=== PATIENT | female | born 1970 | race Caucasian/White ===

== ENCOUNTER → 2021-06-12 15:57 | Outpatient (BNVA) | payer MEDICAID, SELFPAY | PROVIDERS: Visit Provider Nurse Practitioner | DX: R42 Dizziness and giddiness (principal) | CPT/HCPCS: 80053; 85025 ==

== ENCOUNTER 2021-06-13 08:10 | Emergency (ER) | payer MEDICAID, SELFPAY ==
--- NOTE | 2021-06-13 08:15 | ECG_ITS ---
[facility] Test Date: 2021-06-13 Pat Name: Jennifer Aquino Department: Room: Gender: Female Private Duty Nurse: : 1970 Requested By: Aba Saez Order Number: [id number] Snell MD: Yuliya Melendez M.D. Measurements Intervals [place] Rate: 80 P: 31 ME: 153 QRS: -12 QRSD: 97 T: 29 QT: 367 QTc: 424 Interpretive Statements SINUS RHYTHM MODERATE VOLTAGE CRITERIA FOR LVH, CONSIDER NORMAL VARIANT [MEETS CRITERIA IN ONE OF: R(aVL), S(V1), R(V5), R(V5/V6)+S(V1)] No previous ECG available for comparison Electronically Signed On 06-13-2021 19:35:09 CDT by Yuliya Melendez M.D. [email or web address]
--- NOTE | 2021-06-13 08:17 | XR_ITS ---
WS: [id number] Portable AP upright chest, 06/13/2021 Clinical Data: chest pain Comparison: None. Findings: No nodules, masses or effusions are seen. The heart is normal. The pulmonary vascularity is not increased. No pneumonia or pneumothorax is seen. Monitor leads are on the chest wall. XR/XR chest 1V portable [id number] Impression: Negative chest.
[2021-06-13 08:20] VITALS: BP 159/100; PULSE 88; RESP 20; TEMP 36.8; O2SAT 100
--- NOTE | 2021-06-13 08:21 | PC.PHAR ---
pt states she takes care of her own medications-pt states she takes no rx medications
--- NOTE | 2021-06-13 08:37 | ED_ITS ---
HPI - Chest Pain General: Chief Complaint: Chest Pain Stated Complaint: chest pain Time Seen by Provider: 06/13/21 08:17 History of Present Illness: HPI narrative: Patient states that she felt bad yesterday but today she woke about 4:00 this morning with tightness in the left side of her chest going down the left arm going through to her back. Said it felt like somebody was squeezing her in her chest. She still has it feeling denies shortness of breath nausea or vomiting. Has no cardiac history except that mom and dad both had heart problems. Recently moved back from [place] where she had had a breast biopsy done and was told that she had breast cancer in her right breast is not sought out treatment for that presently MD complaint: chest pain and chest discomfort Onset (ago): hour(s) Timing of current episode: constant Prior episodes: No Onset: awoke with symptoms Pain location: left chest Pain radiation: left arm and back Severity: moderate Quality: tightness Relieving factors: nothing Exacerbating factors: nothing Context: recent illness Associated symptoms: Reports no associated symptoms; Deny abdominal pain, dyspnea, fever(s), nausea or vomiting Review of Systems Const: Denies: fever(s), chills or body aches Eyes: Denies: change in vision or blurry vision ENMT: Denies: throat pain or nasal congestion Card: Reports: chest pain; Denies: dyspnea on exertion Resp: Denies: dyspnea, productive cough or non-productive cough GI: Denies: abdominal pain, nausea or vomiting Musc: Denies: extremity pain Skin/Breast: Denies: rash Neuro: Denies: headache(s) Psych: Denies: anxiety or depression Ervin/Lymph: Denies: easy bruising PFSH ED PFSH: Social History Smoking and tobacco status: never smoked Physical Exam Const: COMMON NORMALS: no acute distress, average body habitus and patient oriented x3 HENMT: COMMON NORMALS: normocephalic HEAD & SCALP: normal to inspection and normocephalic FACE & SINUS: normal facial exam Eye: COMMON NORMALS: conjunctivae normal GENERAL EYE: appearance normal, both eyes and all related structures CONJUNCTIVA: Yes conjunctivae normal Neck/C-Spine: COMMON NORMALS: no JVD Chest: COMMONS NORMALS: normal inspection of the chest Resp: COMMON NORMALS: normal respiratory effort and clear to auscultation bilaterally AUSCULTATION: clear to auscultation bilaterally Cardio: COMMON NORMALS: no JVD, regular rate and regular rhythm RATE: regular rate RHYTHM: regular rhythm GI: COMMON NORMALS: Normal to inspection, nondistended, normoactive bowel sounds present Extremity: COMMON NORMALS: normal to inspection and full ROM Neuro: COMMON NORMALS: patient oriented x3 Course Vital Signs: Vital signs: Vital Signs Temperature 98.3 F 06/13/21 08:20 Pulse Rate 80 06/13/21 12:05 Respiratory Rate 18 06/13/21 12:05 Blood Pressure 147/86 06/13/21 12:05 Pulse Oximetry 97 06/13/21 12:05 MDM - Chest Pain MDM Narrative: Medical decision making narrative: Labs come back normal tropo vidal was normal EKG looks good. Patient has a breast lump to come back positive for cancer on a biopsy that was done down in [place]. Patient does not follow-up primary care I suggest that she follows up with her primary care here and gave her names some and follow-up with [facility] clinic. She does have atypical chest pain. Can take ibuprofen Tylenol. Discussed case with Dr. Saez Lab Data: Labs: Lab Results 06/13/21 06/13/21 06/13/21 Range/Units 08:30 08:30 08:30 WBC 10.8 H (4.0-10.0) 10^3/ uL RBC 4.84 (4.1-5.3) 10^6/u L Hgb 12.1 (11.5-15.3) g/dL Hct 39.3 (37.0-47.0) % MCV 81.2 (81-99) fl MCH 25.0 L (28.0-34.0) pg MCHC 30.8 (30.0-36.0) g/dL RDW 14.4 (12.1-15.1) % Plt Count 347 (130-400) 10^3/c mm MPV 11.4 H (7.4-10.4) fL Neut % (Auto) 66.3 % Lymph % (Auto) 24.5 % [place] % (Auto) 6.3 % Eos % (Auto) 2.0 % Baso % (Auto) 0.6 % Neut # (Auto) 7.19 (1.8-7.7) 10^3/u L Lymph # (Auto) 2.7 (0.8-4.8) 10^3/u L [place] # (Auto) 0.7 (0.2-0.9) 10^3/u L Eos # (Auto) 0.2 (0.0-0.8) 10^3/u L Baso # (Auto) 0.1 (0.0-0.1) 10^3/u L Nucleated RBC % (a uto) 0 % Nucleated RBCs # 0.0 /100WBC Sodium Cancelled Potassium Cancelled Chloride Cancelled Carbon Dioxide Cancelled Anion Gap Cancelled BUN Cancelled Creatinine Cancelled GFR Calculation Cancelled Glucose Cancelled Calculated Osmolal ity Cancelled Calcium Cancelled Troponin T Baselin e Cancelled Troponin T 120 Min [place] (0-10) ng/L Delta Troponin T (0-10) ABS# 06/13/21 06/13/21 06/13/21 Range/Units 09:21 09:21 11:20 WBC (4.0-10.0) 10^3/ uL RBC (4.1-5.3) 10^6/u L Hgb (11.5-15.3) g/dL Hct (37.0-47.0) % MCV (81-99) fl MCH (28.0-34.0) pg MCHC (30.0-36.0) g/dL RDW (12.1-15.1) % Plt Count (130-400) 10^3/c mm MPV (7.4-10.4) fL Neut % (Auto) % Lymph % (Auto) % [place] % (Auto) % Eos % (Auto) % Baso % (Auto) % Neut # (Auto) (1.8-7.7) 10^3/u L Lymph # (Auto) (0.8-4.8) 10^3/u L [place] # (Auto) (0.2-0.9) 10^3/u L Eos # (Auto) (0.0-0.8) 10^3/u L Baso # (Auto) (0.0-0.1) 10^3/u L Nucleated RBC % (a uto) % Nucleated RBCs # /100WBC Sodium 137 Potassium 4.2 Chloride 102 Carbon Dioxide 23 Anion Gap 16.2 BUN 11 Creatinine 0.7 GFR Calculation 89.3 L Glucose 88 Calculated Osmolal ity 283 L Calcium 9.5 Troponin T Baselin e 8 Troponin T 120 Min [place] 7.31 (0-10) ng/L Delta Troponin T -0.69 L (0-10) ABS# EKG Data^: EKG 1: EKG interpretation date: 06/13/21 EKG interpretation time: 08:27 Computer generated interpretation: Sinus rhythm ventricular rate 80 bpm PA interval 153 ms QRS duration 97 ms QT interval 367 ms EKG 2: EKG interpretation date: 06/13/21 EKG interpretation time: 12:02 Computer generated interpretation: EKG shows sinus rhythm and LVH. Ventricular rate 90 bpm PA interval 140 ms QRS duration 94 ms QT is 387 ms Discharge Plan Discharge Patient Disposition: Home Clinical Impression: Atypical chest pain Condition: Stable Prescriptions: No Action vitamin B complex Tablet 1 tab PO QAM RF: 0 Discharge Orders: Discharge ED (Routine); Ordered 06/13/21 Ordered By: Juan Manuel Bellamy Discharge Diet: Usual diet Discharge Activity: Resume usual activity Patient Instructions: Noncardiac Chest Pain (ED) Activity Restrictions/Additional Instructions: Establish with primary care here locally. [facility] has a family practice clinic here in [facility] [address] and and please give them a call to get established. Follow-up with your oncologist. Can return to ER if worsening symptoms. Do recommend taking ibuprofen as needed for pain also. Coding Level of Care Code ED Big Data Hadoop Developer for Chg Fwd Exam Comprehensive
[2021-06-13 08:39] VITALS: O2SAT 97
[2021-06-13 09:10] VITALS: BP 143/100; PULSE 73; RESP 24; O2SAT 95
[2021-06-13 09:14] LABS: Basophils # 0.1 10^3/uL (0.0-0.1); Basophils % 0.6 %; Eosinophils # 0.2 10^3/uL (0.0-0.8); Hematocrit 39.3 % (37.0-47.0); Hemoglobin 12.1 g/dL (11.5-15.3); Lymphocytes # 2.7 10^3/uL (0.8-4.8); Lymphocytes % 24.5 %; Mean Corpuscular HGB Conc 30.8 g/dL (30.0-36.0); Mean Corpuscular Volume 81.2 fl (81-99); Mean Platelet Volume 11.4 fL (7.4-10.4); Monocytes # 0.7 10^3/uL (0.2-0.9); Monocytes % 6.3 %; Neutrophils # 7.19 10^3/uL (1.8-7.7); Neutrophils % 66.3 %; Nucleated Red Blood Cells % 0 %; Platelet Count 347 10^3/cmm (130-400); Red Blood Count 4.84 10^6/uL (4.1-5.3); Red Cell Distribution Width 14.4 % (12.1-15.1); White Blood Count 10.8 10^3/uL (4.0-10.0)
[2021-06-13 09:54] LABS: Troponin(5th) Baseline 8 ng/L (0-10)
[2021-06-13 09:56] LABS: Anion Gap 16.2 (5-19); Blood Urea Nitrogen 11 mg/dL (6-20); Calcium 9.5 mg/dL (8.5-10.5); Carbon Dioxide 23 mmol/L (22-29); Chloride 102 mmol/L (98-107); Glomerular Filtration Rate 89.3 mL/min (90-130); Glucose 88 mg/dL (65-115); Osmolality Calculated 283 mOsm/kg (285-295); Potassium 4.2 mmol/L (3.5-5.1); Sodium 137 mmol/L (136-145)
[2021-06-13 10:26] VITALS: BP 156/103; PULSE 78; RESP 21; O2SAT 98
--- NOTE | 2021-06-13 10:58 | PC.NURSE ---
Patient resting, sitting up in bed watching TV. States is feeling better. Pt aware of neeed for 2 hour Troponin which will be collected soon. Pt denies needs/concerns at this time.
[2021-06-13 11:01] VITALS: BP 130/74; PULSE 74; RESP 21; O2SAT 97
[2021-06-13 11:49] LABS: Troponin 5 2HR 7.31 ng/L (0-10)
[2021-06-13 11:51] LABS: Troponin 5 2HR Delta -0.69 ABS# (0-10)
[2021-06-13 12:05] VITALS: BP 147/86; PULSE 80; RESP 18; O2SAT 97
== END 2021-06-13 12:05 | disposition home or self-care (01) ==
PROVIDERS: Emergency Medicine; Emergency Provider Nurse Practitioner Family
DX: R07.89 Other chest pain (principal)
CPT/HCPCS: 36415; 71045; 80048; 84484; 85025; 93005; 99284

== ENCOUNTER 2022-01-06 07:05 | Emergency (ER) | payer MEDICAID, SELFPAY ==
[2022-01-06] VITALS (9 sets, daily range): BP systolic 132–180; BP diastolic 92–123; PULSE 95–114; RESP 14–22; TEMP 36.6; O2SAT 94–100; BMI 49.2
--- NOTE | 2022-01-06 07:27 | USR_ITS ---
PROCEDURE INFORMATION: Exam: US Abdomen, Limited; Right Upper Quadrant Exam date and time: 01/06/2022 8:13 AM Age: 51 years old Clinical indication: Abdominal pain; Acute; Additional info: Ruq pain TECHNIQUE: Imaging protocol: US abdomen. Real time ultrasound with image documentation. Limited exam focused on the right upper quadrant. Total images: 58 COMPARISON: No relevant prior studies available. FINDINGS: Liver: 17.4 cm Liver length. Hepatomegaly. Gallbladder: The gallbladder is contracted with stones and positive sonographic Pacheco sign. Gallbladder wall appears thickened measured at 0.9 cm but no pericholecystic fluid. Findings concerning for acute calculus cholecystitis. Common bile duct: Common bile duct diameter is 7 mm. Pancreas: The pancreas is partially visualized due to overlying bowel gas. No gross pathology is detected. Right kidney: Right kidney with normal echogenicity and no hydronephrosis, calculi, solid masses, nor perinephric fluid collection. 9.7 cm length of right kidney. Portal venous: Spectral sonography demonstrates patent portal vein with hepatopedal blood flow. Normal respiratory phasicity on spectral waveform, indicating preserved compliance of the liver. No portal venous abnormality identified. Other findings: Quality of examination is limited by body habitus. US/US gall bladder [id number] IMPRESSION: 1. Hepatic steatosis noted with hepatomegaly. 2. The gallbladder is contracted with stones and positive sonographic Pacheco sign. Gallbladder wall appears thickened measured at 0.9 cm but no pericholecystic fluid. Findings concerning for acute calculus cholecystitis.
--- NOTE | 2022-01-06 07:28 | W.ED.ABDPA2 ---
HPI - Abdominal Pain General: Chief Complaint: Abdominal Pain Stated Complaint: Rt side abd pain and back area Time Seen by Provider: 01/06/22 07:09 Source: patient Mode of arrival: ambulatory Limitations: no limitations History of Present Illness: Patient is a 51-year-old female here for concerns of right upper quadrant pain over the past 1.5 weeks. Patient states she felt like pain was initially related to possible constipation so treated with OTC medication and felt like she was having normal bowel movements yet her pain persisted. She states over the past 48 hours pain has progressively worsened and become more constant in nature. She feels like pain is radiating around into her back. She is not sure if symptoms are affected by eating states possibly if I eat something spicy . She does feel like maybe she's been burping and passing more flatulance than normal. Patient is actively undergoing chemotherapy for breast cancer so she states she chronically has nausea but she has not had any episodes of emesis. She is not having any urinary symptoms. No fevers. 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 MD elicited complaint: abdominal pain Pertinent past history: none Onset (ago): day(s) Pain Consistency: constant Location: RUQ Severity: severe Quality: sharp and burning Radiation: back Relieving factors: nothing Associated Symptoms: Reports nausea; Denies change in bowel habits, change in stool character, chills, diarrhea, dysuria, fever(s), heartburn, hematochezia, hematuria, hematemesis, melena, syncope and vomiting Review of Systems Const: Denies: fever(s), chills or body aches Card: Denies: chest pain, palpitations, syncope or pre-syncope Resp: Denies: dyspnea, productive cough, non-productive cough, hemoptysis or chest congestion GI: Reports: abdominal pain and nausea; Denies: vomiting, hematemesis, heartburn, diarrhea, change in bowel habits, change in stool character, hematochezia or melena : Denies: flank pain, dysuria or hematuria Musc: Reports: back pain; Denies: neck pain, extremity pain or joint pain Neuro: Denies: headache(s), numbness in extremities, weakness in extremities or sensory changes PFSH ED PFSH: Social History Smoking and tobacco status: never smoked Physical Exam Const: COMMON NORMALS: no acute distress, patient oriented x3, no limitations and alert NUTRITIONAL APPEARANCE: obese ORIENTATION/CONSCIOUSNESS: Yes awake, Yes oriented to person, Yes oriented to place and Yes oriented to time HENMT: COMMON NORMALS: normocephalic and atraumatic HEAD & SCALP: normocephalic and atraumatic Chest: COMMONS NORMALS: normal inspection of the chest and normal palpation of entire chest wall Resp: COMMON NORMALS: normal respiratory effort and clear to auscultation bilaterally AUSCULTATION: clear to auscultation bilaterally Cardio: COMMON NORMALS: regular rhythm RATE: tachycardic RHYTHM: regular rhythm GI: COMMON NORMALS: Soft to palpation and no masses INSPECTION: Yes other (rash present to anterior R abdomen ) AUSCULTATION: Yes normoactive bowel sounds PALPATION: Yes Soft to palpation and Yes Tenderness to palpation present (GI) (RUQ) GI image (female): 1. erythematous cluster of vesicular rash that I highly suspect is herpes zoster : COMMON NORMALS: Yes no CVA tenderness BLADDER/KIDNEY EXAM: Yes no CVA tenderness Back/Pelvis: COMMON NORMALS: no CVA tenderness, thoracic and lumbar spine normal to inspection, no thoracic nor lumbar tenderness and thoraco-lumbar ROM normal Extremity: COMMON NORMALS: normal to inspection GENERAL: Yes normal exam except as noted Neuro: ASIF COMA SCALE: document GCS findings Asif coma scale eye opening: Spontaneous Asif coma scale verbal response: Orientated Asif coma scale motor response: Obey commands Asif coma scale total score: 15 COMMON NORMALS: patient oriented x3, moves all extremities, no focal motor deficits, no sensory deficits noted and gait normal SENSORIUM/ORIENTATION: Yes alert, Yes oriented to person, Yes oriented to place and Yes oriented to time Skin: RASHES: rashes noted (see abdominal assessment) Course ED course: Based on history alone patient's symptoms sounded very suspicious for gallbladder pathology/biliary colic however after physical exam and discovery of zoster appearing rash I think this probably is more likely. She is actively undergoing chemotherapy which would make her at an increased risk for this. She certainly has risk factors (female, 40s, overweight) for gallbladder disease so I think obtaining labs/US would be reasonable as well. Consultations: Consultation #1: Dr. Cheatham-reviewed US/CT findings and did not feel this represented an acute cholecystitis; graciously agreed to see patient in office for follow-up Vital Signs: Vital signs: Vital Signs Temperature 97.9 F 01/06/22 07:16 Pulse Rate 98 01/06/22 11:55 Respiratory Rate 20 H 01/06/22 11:55 Blood Pressure 132/92 01/06/22 11:55 Pulse Oximetry 100 01/06/22 11:55 MDM - Abdominal Pain Medical Decision Making Patient is a 51-year-old female here for complaints of right upper abdominal pains with radiation into her back. On physical exam patient is starting to develop an erythematous vesicular cluster rash to her right upper anterior abdomen that I strongly feel most likely is herpes zoster. Given other symptoms no risk factors lab work and ultrasound gallbladder were obtained. On her US the gallbladder is contracted with stones and appears to have a thickened wall at 0.9 cm. There is no pericholecystic fluid. Radiologist commented that findings could be concerning for acute calculus cholecystitis. Patient has completely normal LFTs. Her UA showed 3+ blood without infection so CT imaging was obtained to further evaluate for hematuria as well as further biliary visualization. CT imaging was essentially normal apart from an incidental right adrenal mass that patient states she was already aware of and has already had biopsied. I did run ultrasound results by Dr. Cheatham who reviewed ultrasound and CT scan and stated the gallbladder wall cannot be accurately measured when the gallbladder is contracted. He felt US/CT imaging coupled with normal labs and normal vitals did not represent an acute cholecystitis but graciously agreed to see patient in his office for follow-up. At this time I will place referral to have patient follow-up with Dr. Cheatham. She will be started on pain meds and antivirals for the shingles. Patient states she will follow up with PCP in regards to the hematuria. Strict return to ED precautions given she verbalized understanding. He did speak about possibly placing patient on steroids for the shingles however she tells me she takes a 5-day course of dexamethasone with her chemotherapy treatments and states she is scheduled to start this January 15 so I do not want to place patient on a steroid taper which would end right around the same time that she is scheduled to start the dexamethasone. Lab Data : 01/06/22 09:10 01/06/22 09:10 Labs/Radiology: Radiology Impressions Gallbladder Ultrasound 01/06/22 07:27 IMPRESSION: 1. Hepatic steatosis noted with hepatomegaly. 2. The gallbladder is contracted with stones and positive sonographic Pacheco sign. Gallbladder wall appears thickened measured at 0.9 cm but no pericholecystic fluid. Findings concerning for acute calculus cholecystitis. Abdomen/Pelvis CT 01/06/22 10:13 IMPRESSION: 1. 18 mm indeterminate mass of the right adrenal gland. Nonemergent unenhanced CT or MR abdomen could further evaluate. 2. No renal, ureteral, nor bladder calculi detected. 3. No acute process identified. Laboratory Results WBC 16.6 10^3/uL (4.0-10.0) H 01/06/22 09:10 RBC 4.21 10^6/uL (4.1-5.3) 01/06/22 09:10 Hgb 13.1 g/dL (11.5-15.3) 01/06/22 09:10 Hct 41.0 % (37.0-47.0) 01/06/22 09:10 MCV 97.4 fl (81-99) 01/06/22 09:10 MCH 31.1 pg (28.0-34.0) 01/06/22 09:10 MCHC 32.0 g/dL (30.0-36.0) 01/06/22 09:10 RDW 14.1 % (12.1-15.1) 01/06/22 09:10 Plt Count 198 10^3/cmm (130-400) 01/06/22 09:10 MPV 10.4 fL (7.4-10.4) 01/06/22 09:10 Neut % (Auto) 74.1 % 01/06/22 09:10 Lymph % (Auto) 18.6 % 01/06/22 09:10 [place] % (Auto) 6.6 % 01/06/22 09:10 Eos % (Auto) 0.2 % 01/06/22 09:10 Baso % (Auto) 0.5 % 01/06/22 09:10 Neut # (Auto) 10.05 10^3/uL (1.8-7.7) H 01/06/22 09:10 Lymph # (Auto) 3.1 10^3/uL (0.8-4.8) 01/06/22 09:10 [place] # (Auto) 1.1 10^3/uL (0.2-0.9) H 01/06/22 09:10 Eos # (Auto) 0.0 10^3/uL (0.0-0.8) 01/06/22 09:10 Baso # (Auto) 0.1 10^3/uL (0.0-0.1) 01/06/22 09:10 Nucleated RBC % (auto) 1.0 % 01/06/22 09:10 Nucleated RBCs # 0.2 /100WBC 01/06/22 09:10 Sodium 137 mmol/L (136-145) 01/06/22 09:10 Potassium 4.1 mmol/L (3.5-5.1) 01/06/22 09:10 Chloride 101 mmol/L (98-107) 01/06/22 09:10 Carbon Dioxide 23 mmol/L (22-29) 01/06/22 09:10 Anion Gap 17.1 (5-19) 01/06/22 09:10 BUN 9 mg/dL (6-20) 01/06/22 09:10 Creatinine 0.9 mg/dL (0.5-0.9) 01/06/22 09:10 GFR Calculation 66.5 mL/min (90-130) L 01/06/22 09:10 Glucose 129 mg/dL (65-115) H 01/06/22 09:10 Calculated Osmolality 284 mOsm/kg (285-295) L 01/06/22 09:10 Calcium 9.8 mg/dL (8.5-10.5) 01/06/22 09:10 Total Bilirubin 0.2 mg/dL (0.15-1.2) 01/06/22 09:10 AST 20 U/L (0-32) 01/06/22 09:10 ALT 20 U/L (0-33) 01/06/22 09:10 Alkaline Phosphatase 109 IU/L (35-105) H 01/06/22 09:10 Total Protein 7.4 g/dL (6.6-8.7) 01/06/22 09:10 Albumin 4.5 g/dL (3.5-5.2) 01/06/22 09:10 Globulin 2.9 g/dL (1.3-4.6) 01/06/22 09:10 Lipase 20 U/L (13-60) 01/06/22 09:10 Urine Color Yellow (Yellow) 01/06/22 09:07 Urine Appearance Clear (CLEAR) 01/06/22 09:07 Urine pH 5 (5-7) 01/06/22 09:07 Ur Specific [place] 1.025 (1.005-1.030) 01/06/22 09:07 Urine Protein Neg (Negative) 01/06/22 09:07 Urine Glucose (UA) Norm (Normal) 01/06/22 09:07 Urine Ketones Negative (Negative) 01/06/22 09:07 Urine Blood 3+ (Negative) H 01/06/22 09:07 Urine Nitrate Negative (Negative) 01/06/22 09:07 Urine Bilirubin Neg (Negative) 01/06/22 09:07 Urine Urobilinogen Norm mg/dL (Negative) 01/06/22 09:07 Ur Leukocyte Esterase Negative (Negative) 01/06/22 09:07 Urine RBC 0-4 /hpf (0-2) H 01/06/22 09:07 Urine WBC None /hpf (0-5) 01/06/22 09:07 Ur Squamous Epith Cells Rare /hpf (0-5) 01/06/22 09:07 Amorphous Sediment Not Reportable 01/06/22 09:07 Urine Bacteria None /hpf (NONE) 01/06/22 09:07 Urine Mucus Trace /hpf 01/06/22 09:07 Discharge Plan Discharge Patient Disposition: Home Clinical Impression: Herpes zoster Qualifiers: Herpes zoster complications: without complications Qualified Code(s): B02.9 - Zoster without complications Condition: Stable Prescriptions: New hydrocodone-acetaminophen 5-325 mg tablet 1 tab PO Q4H PRN (Reason: pain) Qty: 20 0RF Valtrex 1 gram tablet 1,000 mg PO TID 7 Days Qty: 21 0RF No Action vitamin B complex Tablet 1 tab PO QAM 0RF Discharge Orders: Discharge ED (Routine); Ordered 01/06/22 Ordered By: Loretta Lind Referrals: Lucio Cheatham MD [Physician] - Activity Restrictions/Additional Instructions: As we discussed please let your oncologist know early this week of the shingles diagnosis and antiviral started to see if this will alter your upcoming chemotherapy treatment. Case management should contact you shortly to set you up with your follow-up appointment with Dr. Cheatham in regards to your abnormal gallbladder ultrasound. You need to return to the emergency department for worsening or uncontrollable abdominal pains, repetitive episodes of vomiting or diarrhea, fevers greater than 100.4, or any other concerns you may have. I hope you begin to feel better soon. Coding Level of Care Code ED Retail Bakery Manager for Chg Fwd Exam Comprehensive
[2022-01-06] MEDS: morphine 4 mg/mL SDV 1 mL IVP (07:55)
[2022-01-06] MEDS: ondansetron 2 mg/ML SDV 2 mL 4 MG IVP (07:55)
--- NOTE | 2022-01-06 08:06 | PC.NURSE ---
Patient IV placed, unable to get blood specimen, called lab to draw. Patient tolerated IV morphine. Warm blanket provided, call light within reach, railing up. Family at bedside.
--- NOTE | 2022-01-06 08:07 | PC.NURSE ---
Patient reports upper right sided abdominal pain that started 1 week ago. Patient states nothing make the pain worse or better, and the pain comes and goes.Patient states she is currently having chemo, next chemo is next week. Patient denies any needs at this time.
--- NOTE | 2022-01-06 09:04 | PC.NURSE ---
Patient ambulated to the bathroom with steady gait, RN and student Nurse were on standby while walking. Patient reports no pain.
--- NOTE | 2022-01-06 09:10 | PC.NURSE ---
Urine walked to lab.
--- NOTE | 2022-01-06 09:29 | PC.NURSE ---
Patient instructed to not eat or drink anything, nothing by mouth per provider, RN instructed patient. Patient verbalized understanding.
[2022-01-06 09:31] LABS: Basophils # 0.1 10^3/uL (0.0-0.1); Basophils % 0.5 %; Eosinophils % 0.2 %; Hemoglobin 13.1 g/dL (11.5-15.3); Lymphocytes # 3.1 10^3/uL (0.8-4.8); Lymphocytes % 18.6 %; Mean Corpuscular Hemoglobin 31.1 pg (28.0-34.0); Mean Corpuscular Volume 97.4 fl (81-99); Mean Platelet Volume 10.4 fL (7.4-10.4); Monocytes # 1.1 10^3/uL (0.2-0.9); Monocytes % 6.6 %; Neutrophils # 10.05 10^3/uL (1.8-7.7); Nucleated Red Blood Cells # 0.2 /100WBC; Platelet Count 198 10^3/cmm (130-400); Red Blood Count 4.21 10^6/uL (4.1-5.3); Red Cell Distribution Width 14.1 % (12.1-15.1); White Blood Count 16.6 10^3/uL (4.0-10.0)
--- NOTE | 2022-01-06 09:34 | PC.NURSE ---
Patient reports no pain at this time.
[2022-01-06 09:44] LABS: Alanine Aminotransferase 20 U/L (0-33); Albumin Level 4.5 g/dL (3.5-5.2); Alkaline Phosphatase 109 IU/L (35-105); Anion Gap 17.1 (5-19); Aspartate Amino Transferase 20 U/L (0-32); Blood Urea Nitrogen 9 mg/dL (6-20); Calcium 9.8 mg/dL (8.5-10.5); Carbon Dioxide 23 mmol/L (22-29); Chloride 101 mmol/L (98-107); Globulin 2.9 g/dL (1.3-4.6); Glomerular Filtration Rate 66.5 mL/min (90-130); Glucose 129 mg/dL (65-115); Lipase 20 U/L (13-60); Osmolality Calculated 284 mOsm/kg (285-295); Potassium 4.1 mmol/L (3.5-5.1); Sodium 137 mmol/L (136-145); Total Bilirubin 0.2 mg/dL (0.15-1.2); Total Protein 7.4 g/dL (6.6-8.7)
[2022-01-06 09:53] LABS: Add Urine Microscopic? YES; Bilirubin Urine Neg (Negative); Blood Urine 3+ (Negative); Glucose Urine UA Norm (Normal); Ketones Urine Negative (Negative); Leukocyte Esterase Urine Negative (Negative); Nitrate Urine Negative (Negative); Protein Urine Neg (Negative); Specific Gravity, Urine 1.025 (1.005-1.030); Urine Appearance Clear (CLEAR); Urine Color Yellow (Yellow); Urobilinogen Urine Norm (Negative); pH Urine 5 (5-7)
[2022-01-06 10:02] LABS: Mucus Urine TRACE /hpf; RBC Urine 0-4 /hpf (0-2); Squamous Epithelial Cell Urine RARE /hpf (0-5)
[2022-01-06 10:03] LABS: Add Urine Culture? No
[2022-01-06 10:05] LABS: Neutrophils % 74.1 %; Slide Review Slide Review Perform
--- NOTE | 2022-01-06 10:13 | CTR_ITS ---
PROCEDURE INFORMATION: Exam: CT Abdomen And Pelvis With Contrast Exam date and time: 01/06/2022 10:49 AM Age: 51 years old Clinical indication: Abdominal pain; Flank; Right upper quadrant (ruq); Prior surgery; Surgery type: Appy; Additional info: Ruq, R flank pain TECHNIQUE: Imaging protocol: Computed tomography of the abdomen and pelvis with contrast. Total images: 280 Radiation optimization: All CT scans at this facility use at least one of these dose optimization techniques: automated exposure control; mA and/or kV adjustment per patient size (includes targeted exams where dose is matched to clinical indication); or iterative reconstruction. Contrast material: OMNI 300; Contrast volume: 95 ml; Contrast route: INTRAVENOUS (IV); COMPARISON: US gall bladder [id number] 01/06/2022 8:13 AM RADIATION DOSE METRICS: Total DLP (mGy-cm): 1804.42 FINDINGS: Liver: Hepatic steatosis is evident. Gallbladder and bile ducts: Normal. No calcified stones. No ductal dilation. Pancreas: Normal. No ductal dilation. Spleen: Normal. No splenomegaly. Adrenal glands: 18 mm indeterminate mass of the right adrenal gland. 2.5 cm benign left adrenal adenoma, no further followup necessary. Kidneys and ureters: No renal, ureteral, nor bladder calculi detected. Stomach and bowel: Unremarkable. No obstruction. No mucosal thickening. Appendix: No evidence of appendicitis. Intraperitoneal space: Unremarkable. No free air. No significant fluid collection. Vasculature: Incidental phleboliths noted. Lymph nodes: Unremarkable. No enlarged lymph nodes. Urinary bladder: See Kidneys and ureters finding. Reproductive: Unremarkable as visualized. Bones/joints: Facet joint degenerative changes are present. Soft tissues: Unremarkable. CT/CT abdomen pelvis w con* [id number] IMPRESSION: 1. 18 mm indeterminate mass of the right adrenal gland. Nonemergent unenhanced CT or MR abdomen could further evaluate. 2. No renal, ureteral, nor bladder calculi detected. 3. No acute process identified.
[2022-01-06] MEDS: iohexol 300 mg/mL 100 mL Btl IV (10:50)
--- NOTE | 2022-01-07 15:17 | DCPLANNER ---
Addendum entered by Dianna Small 02/25/22 10:46: Appointment was cancelled. Addendum entered by Dianna Small 01/16/22 15:14: Patient has a follow up appointment scheduled for Friday, January 28, 2022 at 9:[address] Cheatham. Clinic will call patient with appointment information. Original Note: manager of selection and assessment had message to schedule a follow up appointment for patient with Dr. Cheatham. manager of selection and assessment faxed patients information to the office of Dr. Cheatham. Patients information will be reviewed, clinic will call patient with appointment information.
== END 2022-01-06 12:19 | disposition home or self-care (01) ==
PROVIDERS: Emergency Provider Physician Assistant
DX: B02.9 Zoster without complications (principal)
CPT/HCPCS: 36415; 74177; 76705; 80053; 81001; 83690; 85025; 96374; 96375; 99284; J2270; J2405; Q9967

== ENCOUNTER 2023-05-18 05:40 | Emergency (ER) | payer MEDICAID, SELFPAY ==
[2023-05-18] VITALS (8 sets, daily range): BP systolic 142–180; BP diastolic 101–124; PULSE 85–101; RESP 18–22; TEMP 36.9; O2SAT 93–97; BMI 51.8
--- NOTE | 2023-05-18 05:49 | ECG_ITS ---
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 Measurements Intervals [place] Rate: 105 P: 41 MD: 171 QRS: -17 QRSD: 94 T: 51 QT: 334 QTc: 443 Interpretive Statements SINUS TACHYCARDIA POSSIBLE LEFT ATRIAL ENLARGEMENT [-0.1mV P-WAVE IN V1/V2] LOW QRS VOLTAGE IN PRECORDIAL LEADS [QRS DEFLECTION < 1.0 mV IN CHEST LEADS] NONSPECIFIC T-WAVE ABNORMALITY ABNORMAL RHYTHM ECG Compared to ECG 06/13/2021 08:22:27 Low QRS voltage now present T-wave abnormality now present Sinus rhythm no longer present Electronically Signed On 05-18-2023 19:50:23 CDT by Yuliya Melendez M.D. [id number] f
--- NOTE | 2023-05-18 05:50 | XRR_ITS ---
PROCEDURE INFORMATION: Exam: XR Chest Exam date and time: 05/18/2023 5:57 AM Age: 52 years old Clinical indication: Shortness of breath; Chest pressure; Prior surgery; Surgery date: 6+ months; Surgery type: Mastectomy; Patient HX: C/O chest pain with SOB. History of breast cancer. ; Additional info: Cp TECHNIQUE: Imaging protocol: Radiologic exam of the chest. Views: 1 view. COMPARISON: CR XR chest 1V portable [id number] 06/13/2021 8:28 AM FINDINGS: Lungs: Unremarkable. No consolidation. Pleural spaces: Unremarkable. No pleural effusion. No pneumothorax. Heart/Mediastinum: Unremarkable. No cardiomegaly. Bones/joints: Unremarkable. XR/XR chest 1V portable [id number] IMPRESSION: No acute findings.
[2023-05-18 06:08] LABS: Basophils # 0.1 10^3/uL (0.0-0.1); Basophils % 0.6 %; Eosinophils # 0.3 10^3/uL (0.0-0.8); Eosinophils % 2.4 %; Hematocrit 43.6 % (37.0-47.0); Hemoglobin 13.6 g/dL (11.5-15.3); Lymphocytes # 3.4 10^3/uL (0.8-4.8); Lymphocytes % 30.5 %; Mean Corpuscular HGB Conc 31.2 g/dL (30.0-36.0); Mean Corpuscular Hemoglobin 26.1 pg (28.0-34.0); Mean Corpuscular Volume 83.7 fl (81-99); Mean Platelet Volume 9.6 fL (7.4-10.4); Monocytes # 0.8 10^3/uL (0.2-0.9); Monocytes % 6.8 %; Neutrophils # 6.65 10^3/uL (1.8-7.7); Neutrophils % 59.2 %; Nucleated Red Blood Cells % 0 %; Platelet Count 323 10^3/cmm (130-400); Red Blood Count 5.21 10^6/uL (4.1-5.3); Red Cell Distribution Width 14.8 % (12.1-15.1); White Blood Count 11.3 10^3/uL (4.0-10.0)
--- NOTE | 2023-05-18 06:20 | ED_ITS ---
Documented by User: Ashley Carlos MD 05/18/23 18:32 HPI - SOB/Dyspnea General: Chief Complaint: Shortness of Breath/Dyspnea Stated Complaint: respiratory distress Time Seen by Provider: 05/18/23 06:32 Source: patient Mode of arrival: ambulatory Limitations: no limitations History of Present Illness: HPI Narrative: 52-year-old female states that over the last 2 nights she has been having some chest pressure along with shortness of breath. She states that she feels like she cannot get a breath in she had diffuse pain across her chest no nausea no diaphoresis she denies any worsening improving factors. No vomiting or diarrhea Associated symptoms: Reports chest pain; Deny abdominal pain, fever(s), nausea or vomiting Review of Systems Const: Denies: fever(s) or chills ENMT: Denies: throat pain or dental pain Card: Reports: chest pain Resp: Reports: dyspnea GI: Denies: abdominal pain, nausea, vomiting or diarrhea Musc: Denies: neck pain or back pain Skin/Breast: Denies: rash Neuro: Denies: headache(s) PFS ED PFSH: Social History Smoking and tobacco status: never smoked Physical Exam Const: COMMON NORMALS: patient oriented x3 HENMT: COMMON NORMALS: normocephalic and atraumatic HEAD & SCALP: normocephalic and atraumatic Neck/C-Spine: COMMON NORMALS: full ROM and supple Chest: COMMONS NORMALS: normal inspection of the chest and normal palpation of entire chest wall Resp: COMMON NORMALS: normal respiratory effort, No retractions, No use of accessory muscles and clear to auscultation bilaterally AUSCULTATION: clear to auscultation bilaterally Cardio: COMMON NORMALS: regular rate, regular rhythm and No murmurs present (Cardio) RATE: regular rate RHYTHM: regular rhythm GI: COMMON NORMALS: Normal to inspection, nondistended, normoactive bowel sounds present, Soft to palpation, non-tender and no masses PALPATION: Yes Soft to palpation Extremity: COMMON NORMALS: normal to inspection and full ROM Neuro: COMMON NORMALS: patient oriented x3, moves all extremities and no focal motor deficits Psych: COMMON NORMALS: mental status grossly normal, Normal thought process present and cooperative THOUGHT PROCESS: Normal thought process present Skin: COMMON NORMALS: no rashes or lesions noted and no wounds GENERAL SKIN EXAM: no rashes or lesions noted Course Vital Signs: Vital signs: Vital Signs Temperature 98.5 F 05/18/23 05:41 Pulse Rate 91 05/18/23 11:13 Respiratory Rate 18 05/18/23 06:22 Blood Pressure 149/101 05/18/23 11:13 Pulse Oximetry 93 05/18/23 11:13 Oxygen Delivery Me thod Room Air 05/18/23 06:22 MDM - SOB/Dyspnea Medical Decision Making Patient presents for chest pain along with dyspnea care turned over to Dr. Canales patient's pending labs and imaging at this time Medical Records I reviewed the patient's medical records. Lab Data I reviewed the patient's lab results. 05/18/23 05:57 05/18/23 05:57 Labs/Radiology: Radiology Impressions Chest X-Ray 05/18/23 05:50 IMPRESSION: No acute findings. Laboratory Results WBC 11.3 10^3/uL (4.0-10.0) H 05/18/23 05:57 RBC 5.21 10^6/uL (4.1-5.3) 05/18/23 05:57 Hgb 13.6 g/dL (11.5-15.3) 05/18/23 05:57 Hct 43.6 % (37.0-47.0) 05/18/23 05:57 MCV 83.7 fl (81-99) 05/18/23 05:57 MCH 26.1 pg (28.0-34.0) L 05/18/23 05:57 MCHC 31.2 g/dL (30.0-36.0) 05/18/23 05:57 RDW 14.8 % (12.1-15.1) 05/18/23 05:57 Plt Count 323 10^3/cmm (130-400) 05/18/23 05:57 MPV 9.6 fL (7.4-10.4) 05/18/23 05:57 Neut % (Auto) 59.2 % 05/18/23 05:57 Lymph % (Auto) 30.5 % 05/18/23 05:57 [place] % (Auto) 6.8 % 05/18/23 05:57 Eos % (Auto) 2.4 % 05/18/23 05:57 Baso % (Auto) 0.6 % 05/18/23 05:57 Neut # (Auto) 6.65 10^3/uL (1.8-7.7) 05/18/23 05:57 Lymph # (Auto) 3.4 10^3/uL (0.8-4.8) 05/18/23 05:57 [place] # (Auto) 0.8 10^3/uL (0.2-0.9) 05/18/23 05:57 Eos # (Auto) 0.3 10^3/uL (0.0-0.8) 05/18/23 05:57 Baso # (Auto) 0.1 10^3/uL (0.0-0.1) 05/18/23 05:57 Nucleated RBC % (auto) 0 % 05/18/23 05:57 Nucleated RBCs # 0.0 /100WBC 05/18/23 05:57 D-Dimer 0.34 ug/mIFEU (0-0.59) 05/18/23 05:57 Sodium 140 mmol/L (136-145) 05/18/23 05:57 Potassium 4.0 mmol/L (3.5-5.1) 05/18/23 05:57 Chloride 99 mmol/L (98-107) 05/18/23 05:57 Carbon Dioxide 29 mmol/L (22-29) 05/18/23 05:57 Anion Gap 16.0 (5-19) 05/18/23 05:57 BUN 15 mg/dL (6-20) 05/18/23 05:57 Creatinine 0.8 mg/dL (0.5-0.9) 05/18/23 05:57 GFR Calculation 75.9 mL/min (90-130) L 05/18/23 05:57 Glucose 130 mg/dL (65-115) H 05/18/23 05:57 Calculated Osmolality 293 mOsm/kg (285-295) 05/18/23 05:57 Calcium 9.5 mg/dL (8.5-10.5) 05/18/23 05:57 Total Bilirubin 0.3 mg/dL (0.15-1.2) 05/18/23 05:57 AST 27 U/L (0-32) 05/18/23 05:57 ALT 37 U/L (0-33) H 05/18/23 05:57 Alkaline Phosphatase 116 U/L (35-105) H 05/18/23 05:57 Troponin T Baseline 11 ng/L (0-10) H 05/18/23 05:57 Troponin T 120 Minute 10.71 ng/L (0-10) H 05/18/23 08:40 Delta Troponin T -0.29 ABS# (0-10) L 05/18/23 08:40 Total Protein 7.2 g/dL (6.6-8.7) 05/18/23 05:57 Albumin 4.0 g/dL (3.5-5.2) 05/18/23 05:57 Globulin 3.2 g/dL (1.3-4.6) 05/18/23 05:57 EKG Data EKG 1: I personally reviewed and interpreted this EKG as follows: EKG Interpretation Date: 05/18/23 EKG interpretation time: 05:49 Interpretation: sinus tach hr [address] or t wave abnormalities qrs 94 qtc 395 Discharge Plan Discharge Patient Disposition: Home Clinical Impression: Chest pain, atypical, Acute dyspnea Condition: Stable Prescriptions: No Action Compazine 10 mg Tablet 10 mg PO Q8H PRN (Reason: Nausea And Vomiting) Ultram 50 mg Tablet 50 - 100 mg PO Q6H PRN (Reason: Pain) hydrochlorothiazide 25 mg Tablet 12.5 mg PO DAILY PRN (Reason: Edema) nystatin 100,000 unit/gram Powder 1 applic TOPICAL BID PRN (Reason: unknown) levothyroxine 112 mcg Tablet 112 mcg PO QAM Adult Multivitamin Gummies 200 mcg Tablet,Chewable 1 tab PO QAM Discharge Orders: Discharge ED (Routine); Ordered 05/18/23 Ordered By: Trever Canales Patient Instructions: Opioid Safety, Pain Management Coding Level of Care Code ED Employment Educational Coord for Chg Fwd Documented by User: Trever Canales MD 05/20/23 06:26 HPI - SOB/Dyspnea General: Chief Complaint: Shortness of Breath/Dyspnea Stated Complaint: respiratory distress Time Seen by Provider: 05/18/23 06:32 Review of Systems General: Reports: 10 or more systems reviewed and unremarkable except in HPI and below PFSH ED PFSH: Social History Smoking and tobacco status: never smoked Course Vital Signs: Vital signs: Vital Signs Temperature 98.5 F 05/18/23 05:41 Pulse Rate 91 05/18/23 11:13 Respiratory Rate 18 05/18/23 06:22 Blood Pressure 149/101 05/18/23 11:13 Pulse Oximetry 93 05/18/23 11:13 Oxygen Delivery Me thod Room Air 05/18/23 06:22 MDM - SOB/Dyspnea Lab Data 05/18/23 05:57 05/18/23 05:57 Labs/Radiology: Radiology Impressions Chest X-Ray 05/18/23 05:50 IMPRESSION: No acute findings. Laboratory Results WBC 11.3 10^3/uL (4.0-10.0) H 05/18/23 05:57 RBC 5.21 10^6/uL (4.1-5.3) 05/18/23 05:57 Hgb 13.6 g/dL (11.5-15.3) 05/18/23 05:57 Hct 43.6 % (37.0-47.0) 05/18/23 05:57 MCV 83.7 fl (81-99) 05/18/23 05:57 MCH 26.1 pg (28.0-34.0) L 05/18/23 05:57 MCHC 31.2 g/dL (30.0-36.0) 05/18/23 05:57 RDW 14.8 % (12.1-15.1) 05/18/23 05:57 Plt Count 323 10^3/cmm (130-400) 05/18/23 05:57 MPV 9.6 fL (7.4-10.4) 05/18/23 05:57 Neut % (Auto) 59.2 % 05/18/23 05:57 Lymph % (Auto) 30.5 % 05/18/23 05:57 [place] % (Auto) 6.8 % 05/18/23 05:57 Eos % (Auto) 2.4 % 05/18/23 05:57 Baso % (Auto) 0.6 % 05/18/23 05:57 Neut # (Auto) 6.65 10^3/uL (1.8-7.7) 05/18/23 05:57 Lymph # (Auto) 3.4 10^3/uL (0.8-4.8) 05/18/23 05:57 [place] # (Auto) 0.8 10^3/uL (0.2-0.9) 05/18/23 05:57 Eos # (Auto) 0.3 10^3/uL (0.0-0.8) 05/18/23 05:57 Baso # (Auto) 0.1 10^3/uL (0.0-0.1) 05/18/23 05:57 Nucleated RBC % (auto) 0 % 05/18/23 05:57 Nucleated RBCs # 0.0 /100WBC 05/18/23 05:57 D-Dimer 0.34 ug/mIFEU (0-0.59) 05/18/23 05:57 Sodium 140 mmol/L (136-145) 05/18/23 05:57 Potassium 4.0 mmol/L (3.5-5.1) 05/18/23 05:57 Chloride 99 mmol/L (98-107) 05/18/23 05:57 Carbon Dioxide 29 mmol/L (22-29) 05/18/23 05:57 Anion Gap 16.0 (5-19) 05/18/23 05:57 BUN 15 mg/dL (6-20) 05/18/23 05:57 Creatinine 0.8 mg/dL (0.5-0.9) 05/18/23 05:57 GFR Calculation 75.9 mL/min (90-130) L 05/18/23 05:57 Glucose 130 mg/dL (65-115) H 05/18/23 05:57 Calculated Osmolality 293 mOsm/kg (285-295) 05/18/23 05:57 Calcium 9.5 mg/dL (8.5-10.5) 05/18/23 05:57 Total Bilirubin 0.3 mg/dL (0.15-1.2) 05/18/23 05:57 AST 27 U/L (0-32) 05/18/23 05:57 ALT 37 U/L (0-33) H 05/18/23 05:57 Alkaline Phosphatase 116 U/L (35-105) H 05/18/23 05:57 Troponin T Baseline 11 ng/L (0-10) H 05/18/23 05:57 Troponin T 120 Minute 10.71 ng/L (0-10) H 05/18/23 08:40 Delta Troponin T -0.29 ABS# (0-10) L 05/18/23 08:40 Total Protein 7.2 g/dL (6.6-8.7) 05/18/23 05:57 Albumin 4.0 g/dL (3.5-5.2) 05/18/23 05:57 Globulin 3.2 g/dL (1.3-4.6) 05/18/23 05:57 Discharge Plan Discharge Patient Disposition: Home Clinical Impression: Chest pain, atypical, Acute dyspnea Condition: Stable Prescriptions: No Action Compazine 10 mg Tablet 10 mg PO Q8H PRN (Reason: Nausea And Vomiting) Ultram 50 mg Tablet 50 - 100 mg PO Q6H PRN (Reason: Pain) hydrochlorothiazide 25 mg Tablet 12.5 mg PO DAILY PRN (Reason: Edema) nystatin 100,000 unit/gram Powder 1 applic TOPICAL BID PRN (Reason: unknown) levothyroxine 112 mcg Tablet 112 mcg PO QAM Adult Multivitamin Gummies 200 mcg Tablet,Chewable 1 tab PO QAM Discharge Orders: Discharge ED (Routine); Ordered 05/18/23 Ordered By: Trever Canales Patient Instructions: Opioid Safety, Pain Management Coding Level of Care Code ED Employment Educational Coord for Mallorie Piper
[2023-05-18 06:33] LABS: Alanine Aminotransferase 37 U/L (0-33); Alkaline Phosphatase 116 U/L (35-105); Aspartate Amino Transferase 27 U/L (0-32); Blood Urea Nitrogen 15 mg/dL (6-20); Calcium 9.5 mg/dL (8.5-10.5); Carbon Dioxide 29 mmol/L (22-29); Chloride 99 mmol/L (98-107); Globulin 3.2 g/dL (1.3-4.6); Glomerular Filtration Rate 75.9 mL/min (90-130); Glucose 130 mg/dL (65-115); Osmolality Calculated 293 mOsm/kg (285-295); Sodium 140 mmol/L (136-145); Total Bilirubin 0.3 mg/dL (0.15-1.2); Total Protein 7.2 g/dL (6.6-8.7)
[2023-05-18 06:39] LABS: D Dimer 0.34 ug/mIFEU (0-0.59)
[2023-05-18 07:14] LABS: Troponin(5th) Baseline 11 ng/L (0-10)
[2023-05-18] MEDS: nitroglycerin 0.4 mg sublingual Tablet SUBLINGUAL (07:35)
--- NOTE | 2023-05-18 07:54 | ECG_ITS ---
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 Measurements Intervals [place] Rate: 92 P: 52 MT: 164 QRS: -2 QRSD: 105 T: 64 QT: 374 QTc: 465 Interpretive Statements SINUS RHYTHM NONSPECIFIC T-WAVE ABNORMALITY Compared to ECG 05/18/2023 05:49:03 Sinus tachycardia no longer present T-wave abnormality still present Electronically Signed On 05-18-2023 20:04:07 CDT by Yuliya Melendez M.D. [id number]
--- NOTE | 2023-05-18 08:13 | PC.PHAR ---
pt states she takes care of her own medications-pt states she takes the medications entered-ext doesnt show when last filled pt states she fills at [facility] not open on sundays to verify when last filled
[2023-05-18 09:13] LABS: Troponin 5 2HR 10.71 ng/L (0-10)
[2023-05-18 09:31] LABS: Troponin 5 2HR Delta -0.29 ABS# (0-10)
== END 2023-05-18 11:13 | disposition home or self-care (01) ==
PROVIDERS: Emergency Medicine; Emergency Provider Internal Medicine
DX: R07.89 Other chest pain (principal); R06.00 Dyspnea, unspecified; Z79.899 Other long term (current) drug therapy
CPT/HCPCS: 36415; 71045; 80053; 84484; 85025; 85378; 93005; 99285